=== PATIENT | male | born 1945 | race Caucasian/White ===

== ENCOUNTER 2022-08-10 11:01 | Observation (INO) | payer MEDICARE ==
[2022-08-10] VITALS (15 sets, daily range): BP systolic 104–174; BP diastolic 61–104
[~2022-08-10] VITALS: Ht 170.2 cm; Wt 90.7 kg
[2022-08-10 11:59] LABS: BASO% 0.5 % (0-3); EOS% 3.6 % (0-8); HEMOGLOBIN 15.3 g/dl (14.0-18.0); IMMATURE GRANULOCYTES 1.2 % (0.0-5.0); LYMPH% 25.2 % (15-41); MEAN CELL VOLUME 92.4 fL CALC (80.0-100.0); MEAN CORPUSCULAR HGB 32.1 pG CALC (26.0-32.0); MEAN CORPUSCULAR HGB CONC 34.8 g/dL CAL (32.0-36.0); MONO% 7.5 % (2-13); NEUT# 5.75 thou/uL (1.82-7.42); RED BLOOD COUNT 4.76 mill/uL (4.70-6.10); RED CELL DISTRI WIDTH 12.4 % (11.5-15.5)
[2022-08-10 12:14] LABS: ALBUMIN 4.7 g/dL (3.2-5.0); ALKALINE PHOSPHATASE 53 u/l (38-126); ANION GAP 11 (6-22 (CALC)); BILIRUBIN, TOTAL 0.8 mg/dL (0.0-1.4); BUN 22 mg/dL (8-23); BUN/CREATININE RATIO 19 (12-20 (CALC)); CARBON DIOXIDE 29 mmol/l (22-30); CHLORIDE 103 mmol/l (95-108); CREATININE 1.1 mg/dL (0.7-1.3); GFR FOR AFR.AMER. > 60 ML/MIN (>=60 (CALC)); GFR OTHER RACES > 60 ML/MIN (>=60 (CALC)); POTASSIUM 5.1 mmol/l (3.5-5.1); SGOT/AST 34 u/l (19-48); SODIUM 138 mmol/l (137-146); TOTAL PROTEIN 7.8 g/dL (6.3-8.2)
[2022-08-10 12:26] LABS: INTERNATIONAL NORMALIZED RATIO 1.1 RATIO (0.7-1.3); PROTHROMBIN TIME 11.1 SECONDS (9.0-12.5)
[2022-08-10] MEDS ORDERED: LIPITOR40 M1 PO (13:58)
[2022-08-10] MEDS ORDERED: CYCLOBENZAPRINE10 MG PO (13:59)
[2022-08-10] MEDS ORDERED: GABAPENTIN100 MG PO (14:02)
[2022-08-10] MEDS ORDERED: BYDUREON B2 MG/0.85 IJ (14:02)
[2022-08-10] MEDS ORDERED: GLIPIZIDE ER5 MG PO (14:03)
[2022-08-10] MEDS ORDERED: IBUPROFEN600 MG PO (14:05)
[2022-08-10] MEDS ORDERED: JARDIANCE25 MG PO (14:06)
[2022-08-10] MEDS ORDERED: PREVACID30 M3 PO (14:06)
[2022-08-10] MEDS ORDERED: MELOXICAM7.5 MG PO (14:07)
[2022-08-10] MEDS ORDERED: METFORMIN HYD1000 MG PO (14:08)
[2022-08-10] MEDS ORDERED: ASCORBIC ACD1000 MG PO (14:08)
[2022-08-10] MEDS ORDERED: ASPIRIN81 MG PO (14:09)
[2022-08-10] MEDS ORDERED: D325 MCG PO (14:10)
[2022-08-10] MEDS ORDERED: IRON COMPLEX PO (14:11)
[2022-08-10] MEDS ORDERED: MULTI VIT PO ×2 (14:12→14:17)
[2022-08-10] MEDS ORDERED: MIRTAZAPINE15 MG PO (14:12)
[2022-08-10] MEDS ORDERED: POTASSIUM99 MG PO (14:13)
[2022-08-10] MEDS ORDERED: TERAZOSIN5 MG PO (14:14)
[2022-08-10] MEDS ORDERED: SILDENAFIL20 MG PO (14:14)
[2022-08-10] MEDS ORDERED: ZOLPIDEM5 M1 PO (14:15)
[2022-08-10] MEDS ORDERED: INDERAL LA60 M1 PO (14:17)
[2022-08-10 15:10] LABS: URINE BILIRUBIN - DIPSTICK NEGATIVE (NEGATIVE); URINE BLOOD DIPSTICK NEGATIVE (NEGATIVE); URINE COLOR YELLOW; URINE GLUCOSE - DIPSTICK >=1000 mg/dL (NEGATIVE); URINE KETONE NEGATIVE (NEGATIVE); URINE LEUK ESTERASE NEGATIVE (NEGATIVE); URINE PH 6.5 (4.5-8.0); URINE PROTEIN - DIPSTICK NEGATIVE (NEG-TRACE); URINE UROBILINOGEN - DIPSTICK 0.2 E.U./dL (0.2)
[2022-08-10 15:14] LABS: URINE NITRITE - DIPSTICK NEGATIVE (Negative)
[2022-08-11] VITALS: BP 121/72
[2022-08-11 00:18] LABS: ALBUMIN 4.4 g/dL (3.2-5.0); ALKALINE PHOSPHATASE 56 u/l (38-126); ANION GAP 13 (6-22 (CALC)); BILIRUBIN, TOTAL 0.6 mg/dL (0.0-1.4); BUN 27 mg/dL (8-23); BUN/CREATININE RATIO 24 (12-20 (CALC)); CARBON DIOXIDE 25 mmol/l (22-30); CHLORIDE 103 mmol/l (95-108); CREATININE 1.1 mg/dL (0.7-1.3); GFR FOR AFR.AMER. > 60 ML/MIN (>=60 (CALC)); GFR OTHER RACES > 60 ML/MIN (>=60 (CALC)); SGOT/AST 28 u/l (19-48); SODIUM 137 mmol/l (137-146); TOTAL PROTEIN 7.1 g/dL (6.3-8.2)
[2022-08-11 03:41] VITALS: BP 124/50
[2022-08-11 04:00] VITALS: BP 124/50
[2022-08-11 05:02] LABS: BASO% 0.3 % (0-3); EOS% 1.6 % (0-8); HEMATOCRIT 41.2 % (39.0-50.0); HEMOGLOBIN 14.4 g/dl (14.0-18.0); IMMATURE GRANULOCYTES 0.6 % (0.0-5.0); LYMPH% 20.8 % (15-41); MEAN CELL VOLUME 92.6 fL CALC (80.0-100.0); MEAN CORPUSCULAR HGB 32.4 pG CALC (26.0-32.0); MONO% 6.6 % (2-13); NEUT# 6.47 thou/uL (1.82-7.42); NEUT% 70.1 % (42-76); RED BLOOD COUNT 4.45 mill/uL (4.70-6.10); RED CELL DISTRI WIDTH 12.5 % (11.5-15.5)
[2022-08-11 05:16] LABS: ALBUMIN 4.4 g/dL (3.2-5.0); ALKALINE PHOSPHATASE 54 u/l (38-126); ANION GAP 12 (6-22 (CALC)); BILIRUBIN, TOTAL 0.7 mg/dL (0.0-1.4); BUN 26 mg/dL (8-23); BUN/CREATININE RATIO 24 (12-20 (CALC)); CARBON DIOXIDE 25 mmol/l (22-30); CHLORIDE 103 mmol/l (95-108); CREATININE 1.1 mg/dL (0.7-1.3); GFR FOR AFR.AMER. > 60 ML/MIN (>=60 (CALC)); GFR OTHER RACES > 60 ML/MIN (>=60 (CALC)); POTASSIUM 4.4 mmol/l (3.5-5.1); SGOT/AST 24 u/l (19-48); SODIUM 136 mmol/l (137-146); TOTAL PROTEIN 6.8 g/dL (6.3-8.2)
[2022-08-11 07:07] VITALS: BP 121/66
[2022-08-11 10:46] VITALS: BP 110/60
== END 2022-08-11 14:18 | disposition home or self-care (01) ==
LOC: ED 11:01 → ED-I 12:20 → ED 13:11 → MS2 13:12
PROVIDERS: Family Medicine; ADMIT Internal Medicine; ATTEND Internal Medicine
DX: G45.9 Transient cerebral ischemic attack, unspecified (principal); I10 Essential (primary) hypertension; E11.42 Type 2 diabetes mellitus with diabetic polyneuropathy; E78.5 Hyperlipidemia, unspecified; Z79.82 Long term (current) use of aspirin; Z79.84 Long term (current) use of oral hypoglycemic drugs
CPT/HCPCS: Q9967